=== PATIENT | male | born 1965 | race Two or more races ===

== ENCOUNTER 2018-08-26 17:07 | Emergency (ER) | payer SELFPAY ==
[~2018-08-26] VITALS: Ht 177.8 cm; Wt 113.4 kg
[2018-08-26 20:08] VITALS: BP 114/79
[2018-08-26] MEDS ORDERED: LIDOCAINE 1% HCL (LOCAL ANESTH.) INJ 20ML MDV ONE (20:13)
[2018-08-26] MEDS ORDERED: HYDROcodone-ACET 5/325MG TAB PO ONE (20:15)
[2018-08-26] MEDS ORDERED: cefTRIAXone SOD 1,000 MG VL IM ONE (20:15)
[2018-08-26] MEDS ORDERED: TETANUS-DIPTH-ACEL PERTUSSIS 0.5ML SYRG IM ONE (21:15)
== END 2018-08-26 21:31 | disposition home or self-care (01) ==
LOC: ER 17:07
DX: S61.215A Laceration without foreign body of left ring finger without damage to nail, initial encounter (principal); E11.9 Type 2 diabetes mellitus without complications; F17.210 Nicotine dependence, cigarettes, uncomplicated; F12.10 Cannabis abuse, uncomplicated; W23.0XXA Caught, crushed, jammed, or pinched between moving objects, initial encounter; Y93.89 Activity, other specified; Y99.8 Other external cause status; Y92.89 Other specified places as the place of occurrence of the external cause
CPT/HCPCS: 12001; 73140; 90471; 90715; 96372; 99283; J0696; J2001

== ENCOUNTER 2020-02-28 17:31 | Emergency (ER) | payer MEDICAID, OTHER ==
[~2020-02-28] VITALS: Ht 175.3 cm; Wt 113.4 kg
[2020-02-28] MEDS ORDERED: KETOROLAC TROMETH 60MG/2ML VIAL IM ONE (19:30)
[2020-02-28 19:32] VITALS: BP 127/81
== END 2020-02-28 19:59 | disposition home or self-care (01) ==
LOC: ER 17:31
DX: S43.401A Unspecified sprain of right shoulder joint, initial encounter (principal); S83.91XA Sprain of unspecified site of right knee, initial encounter; E11.9 Type 2 diabetes mellitus without complications; Z77.22 Contact with and (suspected) exposure to environmental tobacco smoke (acute) (chronic); W18.09XA Striking against other object with subsequent fall, initial encounter; Y93.89 Activity, other specified; Y92.89 Other specified places as the place of occurrence of the external cause; Y99.8 Other external cause status
CPT/HCPCS: 73030; 73562; 96372; 99284; J1885

== ENCOUNTER 2020-08-26 16:22 | Emergency (ER) | payer MEDICAID ==
[~2020-08-26] VITALS: Ht 177.8 cm; Wt 113.4 kg
[2020-08-26 16:23] VITALS: BP 106/78
[2020-08-26] MEDS ORDERED: ACETAMINOPHEN/CODEINE#3 (300/30mg) TAB PO ONE (17:45)
== END 2020-08-26 17:56 | disposition home or self-care (01) ==
LOC: ER 16:22
DX: S46.912A Strain of unspecified muscle, fascia and tendon at shoulder and upper arm level, left arm, initial encounter (principal); S40.022A Contusion of left upper arm, initial encounter; E11.9 Type 2 diabetes mellitus without complications; F12.10 Cannabis abuse, uncomplicated; Z77.22 Contact with and (suspected) exposure to environmental tobacco smoke (acute) (chronic); X58.XXXA Exposure to other specified factors, initial encounter; Y93.89 Activity, other specified; Y92.89 Other specified places as the place of occurrence of the external cause; Y99.8 Other external cause status
CPT/HCPCS: 73030

== ENCOUNTER 2020-08-31 11:38 | Emergency (ER) | payer MEDICAID ==
[~2020-08-31] VITALS: Ht 175.3 cm; Wt 103.0 kg
[2020-08-31 11:42] VITALS: BP 139/94
== END 2020-08-31 13:25 | disposition home or self-care (01) ==
LOC: ER 11:38
DX: M79.602 Pain in left arm (principal); E11.9 Type 2 diabetes mellitus without complications; F12.10 Cannabis abuse, uncomplicated; Z77.22 Contact with and (suspected) exposure to environmental tobacco smoke (acute) (chronic)
CPT/HCPCS: 93971

== ENCOUNTER 2021-11-04 19:52 | Emergency (ER) | payer MEDICAID ==
[~2021-11-04] VITALS: Ht 172.7 cm; Wt 93.9 kg
[2021-11-04 19:53] VITALS: BP 118/77
== END 2021-11-04 20:25 | disposition left against medical advice (07) ==
LOC: ER 19:52
DX: K08.89 Other specified disorders of teeth and supporting structures (principal); Z53.21 Procedure and treatment not carried out due to patient leaving prior to being seen by health care provider